=== PATIENT | female | born 2000 | race Caucasian/White ===

== ENCOUNTER 2022-01-20 11:16 | Day surgery (SDC) | payer OTHER ==
[2022-01-20 11:32] VITALS: BMI 27.3
[2022-01-20] MEDS ORDERED: hydrALAZINE 20 MG/ML VIAL SLOW IVP PRN (13:37)
== END 2022-01-20 12:13 | disposition home or self-care (01) ==
LOC: CSHLD/OP 11:16
PROVIDERS: ATTEND Obstetrics & Gynecology
DX: O47.1 False labor at or after 37 completed weeks of gestation (principal); Z3A.38 38 weeks gestation of pregnancy

== ENCOUNTER 2022-01-21 13:30 | Inpatient (IN) | payer OTHER ==
[2022-01-21 14:01] VITALS: BMI 26.6
[2022-01-21 14:22] LABS: Fetal Membranes Rupture RUPTURE DETECTED (No Rupture)
[2022-01-21] MEDS ORDERED: hydrALAZINE 20 MG/ML VIAL SLOW IVP PRN ×2 (14:28→14:39)
[2022-01-21] MEDS ORDERED: Ibuprofen 800 MG TAB PO PRN (14:39)
[2022-01-21] MEDS ORDERED: Ondansetron PF 4 MG/2 ML Vial IVP PRN ×2 (14:39→21:57)
[2022-01-21] MEDS ORDERED: Acetaminophen 500 MG TAB PO PRN (14:39)
[2022-01-21] MEDS ORDERED: Methylergonovine 0.2 MG/ML VIAL IM PRN (14:39)
[2022-01-21] MEDS ORDERED: Carboprost 250 MCG/ML AMP IM PRN (14:39)
[2022-01-21] MEDS ORDERED: Lidocaine 1% (PF) 30 ML VIAL SC PRN (14:39)
[2022-01-21] MEDS ORDERED: Misoprostol 200 MCG TAB PR PRN (14:39)
[2022-01-21] MEDS ORDERED: Butorphanol Tartrate 1 MG/ML VIAL SLOW IVP PRN (14:39)
[2022-01-21] MEDS ORDERED: Promethazine HCl 25 MG/ML VIAL IM PRN ×2 (14:39→21:57)
[2022-01-21] MEDS ORDERED: NS w/ Oxytocin 30 units 500 ML IV SCH ×2 (14:45)
[2022-01-21] MEDS ORDERED: Penicillin G Potassium 5 MILL.UNITS in Sodium Chloride 0.9% 100 ML IVPB SCH (15:15)
[2022-01-21] MEDS: Lactated Ringer's 1,000 ML IV SCH ×2 (15:45→22:42)
[2022-01-21 16:26] LABS: Hemoglobin 12.8 g/dL (12.0-15.5); Mean Corpuscular HGB CONC 34.9 g/dL (32.0-36.0); Mean Corpuscular Hemoglobin 32.7 pg (27.0-33.0); Mean Corpuscular Volume 93.9 fl (81.6-98.3); Mean Platelet Volume 11.3 fl (7.4-10.4); Platelet Count 180 10x3/uL (150-450); RBC Distribution Width 13.3 % (11.5-14.5); Red Blood Cell (RBC) Count 3.91 10x6/uL (3.90-5.03); White Blood Cell (WBC) Count 17.7 10x3/uL (3.5-10.5)
[2022-01-21 16:58] LABS: Hep B Surf Ag Non-Reactive S/CO (NonReactive); Syphilis Antibody Nonreactive (Nonreactive); Syphilis Antibody Index 0.02 S/CO (<1.00 Non-Reactive)
[2022-01-21 17:01] LABS: HBSAg Index 0.17 S/CO (0-0.99)
[2022-01-21] MEDS: Penicillin G 2.5 MILL.units 2.5 MILL.UNITS in Premix Bag 1 BAG IVPB SCH (20:18)
[2022-01-21 20:59] LABS: SARS-CoV-2 NAA Rapid Test Not Detected (NotDetected)
[2022-01-21] MEDS ORDERED: Fentanyl 2 mcg/Bup 0.1% Cadd 100 ML ONE (21:23)
[2022-01-21] MEDS ORDERED: diphenhydrAMINE 50 MG/ML VIAL IVP PRN (21:57)
[2022-01-21] MEDS ORDERED: Naloxone HCl 0.4 mg/ml Vial IVP PRN ×2 (21:57)
[2022-01-21] MEDS ORDERED: ePHEDrine Sulfate 50 MG/10 ML VIAL SLOW IVP PRN (21:57)
[2022-01-21] MEDS ORDERED: Hydrocerin (Eucerin) Cream 120 gm Jar TOP PRN (21:57)
[2022-01-21] MEDS ORDERED: Acetaminophen 325 MG TAB PO PRN (21:57)
[2022-01-21] MEDS ORDERED: Communication Order-Pharmacy FS SCH (22:00)
[2022-01-21] MEDS ORDERED: Lactated Ringer's 500 ML IV PRN (22:03)
[2022-01-22] MEDS: Penicillin G 2.5 MILL.units 2.5 MILL.UNITS in Premix Bag 1 BAG IVPB SCH ×5 (00:27→16:54)
[2022-01-22] MEDS: Lactated Ringer's 1,000 ML IV SCH ×2 (02:12→16:54)
[2022-01-22] MEDS: Fentanyl 2 mcg/Bupivacaine 0.1% Cassette 100 ML EPIDURAL SCH ×2 (05:51→11:48)
[2022-01-22] MEDS ORDERED: Fentanyl 100 MCG/2 ML VIAL ONE (08:59)
[2022-01-22] MEDS ORDERED: Prenatal Vitamin 1 TAB PO SCH (09:00)
[2022-01-22 13:13] LABS: RapidComm Collect By NURSE; pH (Cord, venous) 7.314 (7.250-7.350)
[2022-01-22 13:14] LABS: RapidComm Collect By NURSE
[2022-01-22] MEDS ORDERED: diphenhydrAMINE 25 MG CAP PO PRN (15:23)
[2022-01-22] MEDS ORDERED: Boostrix 0.5 ML (Tdap) VIAL IM ONE (15:23)
[2022-01-22] MEDS ORDERED: HYDROcodone/Acetaminophen 5/325 mg Tablet PO PRN ×2 (15:23)
[2022-01-22] MEDS ORDERED: Bisacodyl 10 MG SUPP PR PRN (15:23)
[2022-01-22] MEDS ORDERED: Preparation H Ointment 28 GM TUBE PR PRN (15:23)
[2022-01-22] MEDS ORDERED: Ondansetron PF 4 MG/2 ML Vial IVP PRN (15:23)
[2022-01-22] MEDS ORDERED: NS w/ Oxytocin 30 units 500 ML IV SCH (15:23)
[2022-01-22] MEDS ORDERED: Benzocaine-Menthol 82.5 ML CAN TOP PRN (15:23)
[2022-01-22] MEDS ORDERED: Lanolin Ointment 7 GM TUBE TOP PRN (15:23)
[2022-01-22] MEDS ORDERED: hydrALAZINE 20 MG/ML VIAL SLOW IVP PRN (15:23)
[2022-01-22] MEDS ORDERED: Milk Of Magnesia 30 ML UDCUP PO PRN (15:23)
[2022-01-22] MEDS: Ferrous Sulfate 325 MG TAB PO SCH (16:53)
[2022-01-22] MEDS: Docusate 100 MG CAP PO SCH (22:14)
[2022-01-22] MEDS: Ibuprofen 800 MG TAB PO SCH (22:16)
[2022-01-23 04:50] LABS: Hemoglobin 10.2 g/dL (12.0-15.5)
[2022-01-23] MEDS: Ibuprofen 800 MG TAB PO SCH ×3 (05:18→21:49)
[2022-01-23] MEDS: Ferrous Sulfate 325 MG TAB PO SCH ×2 (08:08→16:52)
[2022-01-23] MEDS: Prenatal Vitamin 1 TAB PO SCH (08:38)
[2022-01-23] MEDS: Docusate 100 MG CAP PO SCH ×2 (08:38→21:49)
[2022-01-24] MEDS: Ibuprofen 800 MG TAB PO SCH ×2 (05:29→14:19)
[2022-01-24] MEDS: Ferrous Sulfate 325 MG TAB PO SCH ×2 (07:31→16:58)
[2022-01-24 07:43] VITALS: TEMP 97.6
[2022-01-24] MEDS: Prenatal Vitamin 1 TAB PO SCH (08:47)
[2022-01-24] MEDS: Docusate 100 MG CAP PO SCH (08:50)
[2022-01-24 16:56] VITALS: BP 123/72
[2022-02-20] MEDS ORDERED: Bupivacaine/Epinephrine 0.25% 30 ML VIAL ONE (07:00)
[2022-02-20] MEDS ORDERED: Bupivacaine HCl 0.5%/Epinephrine 1:200,000/PF 30 ml Vial ONE (07:00)
== END 2022-01-24 18:45 | disposition home or self-care (01) | DRG 807 ==
LOC: CSHLD/OP 13:30 → CSHLD 16:45 → CSHPP 01-22 15:40
PROVIDERS: ADMIT Obstetrics & Gynecology; ATTEND Obstetrics & Gynecology
PROC: 10D07Z6 Extraction of Products of Conception, Vacuum, Via Natural or Artificial Opening (ICD-10-PCS; principal; 2022-01-22)
PROC: 0HQ9XZZ Repair Perineum Skin, External Approach (ICD-10-PCS; 2022-01-22)
DX: O42.02 Full-term premature rupture of membranes, onset of labor within 24 hours of rupture (principal); Z37.0 Single live birth; O66.0 Obstructed labor due to shoulder dystocia; O70.0 First degree perineal laceration during delivery; Z3A.38 38 weeks gestation of pregnancy; Z20.822 Contact with and (suspected) exposure to COVID-19; O76 Abnormality in fetal heart rate and rhythm complicating labor and delivery; O62.2 Other uterine inertia
CPT/HCPCS: 36415; 82805; 84112; 85014; 85018; 85027; 86780; 86850; 86900; 86901; 87340; J2210; J2405; J2540; J2550; J2590; J3490; J7120; U0002